=== PATIENT | male | born 1960 | race Two or more races ===

== ENCOUNTER → 2017-03-24 | Outpatient (CLI) | payer BC | END | disposition home or self-care (01) | LOC: RADPV 07:25 | PROVIDERS: ATTEND Family Medicine | DX: M25.542 Pain in joints of left hand (principal); G89.29 Other chronic pain ==

== ENCOUNTER → 2019-06-21 | Outpatient (CLI) | payer BC | END | disposition home or self-care (01) | LOC: RADPV 09:37 | PROVIDERS: ATTEND Nurse Practitioner | DX: R76.11 Nonspecific reaction to tuberculin skin test without active tuberculosis (principal) ==